=== PATIENT | female | born 1985 | race Caucasian/White ===

== ENCOUNTER → 2016-08-11 | Outpatient (CLI) | payer OTHER ==
[~2016-08-11] MED LIST: MTR600X PO; PRENTAB26 PO; SYN88
== END | disposition home or self-care (01) ==
LOC: C.LAB1850 10:20
PROVIDERS: ATTEND Specialist
DX: Z01.89 Encounter for other specified special examinations (principal)

== ENCOUNTER → 2017-02-14 | Outpatient (CLI) | payer BC ==
[2017-02-14 10:16] LABS: THYROID STIMULATING HORMONE 1.88 uIu/ml (0.300-4.500)
== END | disposition home or self-care (01) ==
LOC: C.LAB1850 08:13
PROVIDERS: ATTEND Internal Medicine Endocrinology, Diabetes & Metabolism
DX: E03.9 Hypothyroidism, unspecified (principal)

== ENCOUNTER 2019-05-24 20:18 | Inpatient (IN) ==
[2019-05-24 21:14] LABS: Basophils # (auto) 0.04 K/uL (0-0.2); Basophils % (auto) 0.5 %; Eosinophils # (auto) 0.16 K/uL (0-0.5); Eosinophils % (auto) 1.9 %; Hematocrit (blood only) 38.9 % (37-47); Hemoglobin 13.1 g/dL (12.0-16.0); Immature Granulocytes # (auto) 0.01 K/uL (0.00-0.02); Immature Granulocytes % (auto) 0.1 %; Lymphocytes % (auto) 27.8 %; Mean Corpuscular Hemoglobin 28.5 pg (25-34); Mean Corpuscular Hgb Conc 33.7 g/dL (32-36); Mean Corpuscular Volume 84.6 fL (80-100); Mean Platelet Volume 9.7 fL (7.4-10.4); Monocytes # (auto) 0.53 K/uL (0.11-0.59); Monocytes % (auto) 6.1 %; Neutrophils % (auto) 63.6 %; Platelet Count 193 K/uL (130-400); RDW Coefficient of Variation 13.9 % (11.5-14.5); RDW Standard Deviation 41.7 fL (36.4-46.3); White Blood Count 8.64 K/uL (4.8-10.8)
[2019-05-24 21:17] LABS: iSTAT Creatinine 0.6 mg/dl (0.6-1.3); iSTAT Hemoglobin 12.6 g/dl (12.0-16.0); iSTAT Ionized Calcium 1.16 mmol/l (1.12-1.32); iSTAT Potassium 4.5 mmol/L (3.3-5.0)
[2019-05-24 21:25] LABS: INR 1.1 (0.9-1.1); Partial Thromboplastin Ratio 1.1; Partial Thromboplastin Time 30.5 Seconds (21.0-31.0); Prothrombin Time 10.9 Seconds (9.0-12.0)
[2019-05-24] MEDS ORDERED: OPTIRAY 320 125ml IV PRN (21:25)
--- NOTE | 2019-05-24 21:36 | CT Scan Report ---
CT head/brain wo con CLINICAL HISTORY: 33 years-old Female with LEROY on lovenox. Acute headache TECHNIQUE: Multiple axial CT images of the head were obtained without contrast. A dose lowering tech nique was utilized adhering to the principles of ALARA. CT DOSE: 1353.10 mGy.cm COMPARISON: None. FINDINGS: No acute intracranial hemorrhage, midline shift, intracranial mass, hydrocephalus, territorial ischem ia or abnormal extra-axial collection. Minimal senescent calcifications of the lentiform nuclei. The calvarium is intact. The paranasal sinuses, mastoid air cells, and middle ear cavities are clear . IMPRESSION: No acute intracranial abnormality. ACT 112: Negative or not required by law. The above report was generated using voice recognition software. It may contain grammatical, syntax o r spelling errors. Electronically signed by: Danny Bryan M.D. 05/24/2019 9:35 PM
[2019-05-24 21:39] LABS: Albumin Globulin Ratio 0.8 (0.9-2); Albumin Level 3.2 gm/dl (3.4-5.0); BUN Creatinine Ratio 11.3 (10-20); Bilirubin,Total 0.3 mg/dl (0.2-1); Est GFR (African American) 120.5; Total Protein 7.2 gm/dl (6.4-8.2)
[2019-05-24] MEDS ORDERED: SODIUM CHLORIDE 0.9% 1000ML 1,000 ML IV ONE (21:48)
--- NOTE | 2019-05-24 21:56 | CT Scan Report ---
CT angio chest PE protocol HISTORY: 33 years-old Female with SOB with DVT eval for PE. Acute shortness of breath with DVT TECHNIQUE: Multiple CTA images of the chest were obtained after the intravenous administration of 117 ml Optiray 320. Coronal and sagittal MIPS were obtained from the axial data set and were submitted for review. All measurements were obtained according to NASCET criteria. A dose lowering technique w as utilized adhering to the principles of ALARA. COMPARISON: Chest radiograph 02/23/2018 FINDINGS: CTA: Heart is normal in size. There is no pericardial effusion. Thoracic aorta is unremarkable without ane urysm or dissection. Patency of the imaged great vessels. Extensive bilateral pulmonary emboli involv e the main right and left pulmonary arteries extending into the lobar, segmental and subsegmental bra nches bilaterally. Extensive emboli are noted with present within the right lower lobe. No evidence o f right heart strain. No saddle embolus. CT CHEST: Unremarkable thyroid. Residual thymic tissue anterior mediastinum. No adenopathy by CT size criteria. No pneumothorax, pleural effusion, overt pulmonary edema or airspace consolidation to suggest pulmon ioana infarct. There are 2 subpleural solid pulmonary nodules of the right lung apex measuring up to 4 mm are likely benign. No suspicious pulmonary nodules or masses identified. The central airways appea r patent. Cholecystectomy. Mild wall thickening of the distal esophagus with tiny hiatal hernia. Soft tissues a nd breast parenchyma appear unremarkable. Bones appear intact. IMPRESSION: 1. Extensive bilateral pulmonary emboli involve the right and left main pulmonary arteries extending into the lobar, segmental and subsegmental branches bilaterally. No evidence of right heart strain, p leural effusion or pulmonary infarct. 2. Cholecystectomy. 3. Mild wall thickening of the distal esophagus with tiny hiatal hernia. ACT 112: Negative or not required by law. The above report was generated using voice recognition software. It may contain grammatical, syntax o r spelling errors. Electronically signed by: Danny Bryan M.D. 05/24/2019 9:55 PM
[2019-05-24] MEDS ORDERED: ONDANSETRON INJ 2 MG/ML 2 ML VIAL IV PRN (22:54)
[2019-05-24] MEDS ORDERED: HYDROmorphone INJ 0.5 MG/0.5 ML SYR IV PRN (22:54)
[2019-05-24] MEDS ORDERED: HydrALAZINE HCL 20 MG/ML VIAL IV PRN (23:06)
[2019-05-24] MEDS: ACETAMINOPHEN 325 MG TAB PO PRN (23:08)
[2019-05-24] MEDS: FAMOTIDINE 20 MG TAB PO SCH (23:08)
--- NOTE | 2019-05-24 23:14 | History & Physical Report ---
Date of Service May 24, 2019 Assessment & Plan (1) Multiple pulmonary emboli: Admit PCU Lovenox 1mg/kg Q12 hours Oxygenation is preserved POX 98% on RA. Echo Pain control ordered. (2) Acute deep vein thrombosis (DVT) of left lower extremity: Diagnosed today at [facility] Started on Lovenox just today. MESERET hose for swelling prevention. (3) Chronic headaches: Pain control ordered. (4) Hypothyroidism: Continue Synthroid. History of Present Illness 33 y/o female presented to the ED with headache and exertional SOB. She reports that she had developed high estrogen levels as a result of IVF cycle. 6 days prior she had noticed pain in the posterior left knee, but had resolved by morning. She noted a severe headache over the weekend. Then on the morning of 05/24, she felt L lower leg pain again and went to ED in [place], [place]. She was noted to have a DVT and given dose of Lovenox in the ED. Throughout the day she noticed exertional SOB and developed a headache. She came to the ED now is found to have b/l PE. She did take her Lovenox dose at 1999. Primary Care Provider: Arnoldo Lara Allergies Allergy/AdvReac Type Severity Reaction Status Date / Time cortisone AdvReac Severe HAD PERIOD Verified 05/24/19 21:06 FOR 3 MONTHS Home Medications Home Medications Medication Instructions Recorded Confirmed Type PNV cmb#95-ferrous fumarate-FA 1 tab PO DAILY 02/23/18 05/24/19 History [] Synthroid 137 mcg tablet 137 mcg PO DAILY #30 tab NS 05/24/19 05/24/19 Rx enoxaparin [Lovenox] 100 mg SUBCUT Q12H 05/24/19 05/24/19 History Past Med/Surg History Medical History Ankylosing spondylitis Anxiety Fibromyalgia H/O varicella History of ectopic Hypothyroid (Chronic) IBS (irritable bowel syndrome) Need for rhogam due to Rh negative mother Palpitations resulting from assisted reproductive technology in third trimester Surgical History H/O foot surgery History of hip surgery History of salpingectomy ectopic , Right tube, December, S/P cholecystectomy S/P dilation and curettage S/P tonsillectomy and adenoidectomy Family History Aunt Ovarian cancer maternal Cervix cancer Other Cardiac disorder Diabetes Prostate cancer Stroke Thyroid disease Social History Preferred Language: Monegasque Communication Ability: Effective Beliefs That Will Affect Care: None Current Living Situation: Spouse Feels Safe at Home: Yes Safety Concerns: Feels Safe At This Time Smoking Status: Never smoker Hx Alcohol Use: No Hx Substance Use: No Review of Systems Review of Systems: Constitutional- no fever; no weight loss Eyes- no acute visual changes ENT- no sinus drainage; no pharyngitis Pulmonary- no cough, no wheezing. Cardiac- no chest pain, no palpitations, no orthopnea, no dependent edema GI- no nausea, no vomiting, no diarrhea, no melena, no hematochezia - no dysuria, no hematuria Musculoskeletal - As in HPI Derm- no rashes, no new skin lesions. Hematologic- no unusual bruising, no unusual bleeding Lymphatics- no adenopathy Endocrine- no polyuria or polydipsia; no heat or cold intolerance Neuro- no headaches, no focal neurologic symptoms Psych- no anxiety, no depression Physical Exam Physical Exam: General- adult female, NAD Head- atraumatic Eyes- PERRL, EOMI, anicteric ENT- oropharynx clear Neck- supple, no JVD, no adenopathy, no thyromegaly. Lungs- CTA b/l No R/R/W. Heart- regular rhythm; no murmur, no gallop, no rub appreciated Abdomen- normal bowel sounds, soft, nontender. 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 Skin- warm & dry Results & Data Vital Signs (Past 12 Hours) Vital Signs Temp Pulse Resp BP Pulse Ox 05/24/19 22:30 105 H 24 159/97 H 98 05/24/19 22:02 100 H 24 142/69 H 98 05/24/19 21:52 97 05/24/19 21:48 86 22 134/81 99 05/24/19 20:20 37.0 C 104 H 18 148/94 H 96 Laboratory Results Laboratory Results WBC 8.64 K/uL (4.8-10.8) 05/24/19 20:50 RBC 4.60 M/uL (4.2-5.4) 05/24/19 20:50 Hgb 13.1 g/dL (12.0-16.0) 05/24/19 20:50 POC Hgb 12.6 g/dl (12.0-16.0) 05/24/19 21:04 Hct 38.9 % (37-47) 05/24/19 20:50 POC Hct 37 % (37-47) 05/24/19 21:04 MCV 84.6 fL (80-100) 05/24/19 20:50 MCH 28.5 pg (25-34) 05/24/19 20:50 MCHC 33.7 g/dL (32-36) 05/24/19 20:50 RDW Std Deviation 41.7 fL (36.4-46.3) 05/24/19 20:50 RDW Coeff of Florentino 13.9 % (11.5-14.5) 05/24/19 20:50 Plt Count 193 K/uL (130-400) 05/24/19 20:50 MPV 9.7 fL (7.4-10.4) 05/24/19 20:50 Immature Gran % (Auto) 0.1 % 05/24/19 20:50 Neut % (Auto) 63.6 % 05/24/19 20:50 Lymph % (Auto) 27.8 % 05/24/19 20:50 Hudson % (Auto) 6.1 % 05/24/19 20:50 Eos % (Auto) 1.9 % 05/24/19 20:50 Baso % (Auto) 0.5 % 05/24/19 20:50 Immature Gran # (Auto) 0.01 K/uL (0.00-0.02) 05/24/19 20:50 Neut # (Auto) 5.50 K/uL (1.4-6.5) 05/24/19 20:50 Lymph # (Auto) 2.40 K/uL (1.2-3.4) 05/24/19 20:50 Hudson # (Auto) 0.53 K/uL (0.11-0.59) 05/24/19 20:50 Eos # (Auto) 0.16 K/uL (0-0.5) 05/24/19 20:50 Baso # (Auto) 0.04 K/uL (0-0.2) 05/24/19 20:50 PT 10.9 Seconds (9.0-12.0) 05/24/19 20:50 INR 1.1 (0.9-1.1) 05/24/19 20:50 APTT 30.5 Seconds (21.0-31.0) 05/24/19 20:50 PTT Ratio 1.1 05/24/19 20:50 POC Sodium 139 mmol/L (135-144) 05/24/19 21:04 Sodium 139 mmol/L (136-145) 05/24/19 20:50 POC Potassium 4.5 mmol/L (3.3-5.0) 05/24/19 21:04 Potassium mmol/L (3.5-5.1) 05/24/19 20:50 POC Chloride 106 mmol/L (101-112) 05/24/19 21:04 Chloride 109 mmol/L (98-107) H 05/24/19 20:50 Carbon Dioxide 26 mmol/L (21-32) 05/24/19 20:50 POC Total CO2 26 mEq/l (24-31) 05/24/19 21:04 Anion Gap 5.0 (3-11) 05/24/19 20:50 POC Anion Gap 14.0 mmol/L (16-25) L 05/24/19 21:04 POC BUN 9 mg/dl (7-18) 05/24/19 21:04 BUN 9 mg/dl (7-18) 05/24/19 20:50 Creatinine 0.75 mg/dl (0.6-1.2) 05/24/19 20:50 POC Creatinine 0.6 mg/dl (0.6-1.3) 05/24/19 21:04 Est Cr Clr Drug Dosing 130.0 ml/min 05/24/19 20:50 Est GFR ( Amer) 120.5 05/24/19 20:50 Est GFR (Non-Af Amer) 104.0 05/24/19 20:50 BUN/Creatinine Ratio 11.3 (10-20) 05/24/19 20:50 Glucose 106 mg/dl (70-99) H 05/24/19 20:50 POC Glucose (other) 111 mg/dl (70-99) H 05/24/19 21:04 Calcium 9.0 mg/dl (8.5-10.1) 05/24/19 20:50 POC Ioniz Calcium Nicolás 1.16 mmol/l (1.12-1.32) 05/24/19 21:04 Total Bilirubin 0.3 mg/dl (0.2-1) 05/24/19 20:50 AST U/L (15-37) 05/24/19 20:50 ALT 20 U/L (12-78) 05/24/19 20:50 Alkaline Phosphatase 59 U/L (45-117) 05/24/19 20:50 Total Protein 7.2 gm/dl (6.4-8.2) 05/24/19 20:50 Albumin 3.2 gm/dl (3.4-5.0) L 05/24/19 20:50 Globulin 4.0 gm/dl (2.5-4.0) 05/24/19 20:50 Albumin/Globulin Ratio 0.8 (0.9-2) L 05/24/19 20:50 HCG, Quant < 1 mIU/ml 05/24/19 20:50 Diagnostic Findings [place], [place] [phone] CT Scan Report Patient: LÓPEZ AUSTIN LAdmit Date: 05/24/19 MR#: [id number]: [address] [place] [address] Acct ID:[id number]: Date: 1985[facility] Zip: [place] [address] Age: 33Location: ED Sex: F Room/Bed: Att Phy:Diagnosis: DVT,HEADACHE,SHORTNESS OF BREATH Gavi Phy: Arnoldo Lara MDService Date: 05/24/19 Fam Phy:Interpreting Phy: Rich Bryan Admit Phy: Ordering Phy: Tobias Holt MD cc: ~ CT angio chest PE protocol HISTORY: 33 years-old Female with SOB with DVT eval for PE. Acute shortness of breath with DVT TECHNIQUE: Multiple CTA images of the chest were obtained after the intravenous administration of 117 ml Optiray 320. Coronal and sagittal MIPS were obtained from the axial data set and were submitted for review. All measurements were obtained according to NASCET criteria. A dose lowering technique was utilized adhering to the principles of ALARA. COMPARISON: Chest radiograph 02/23/2018 FINDINGS: CTA: Heart is normal in size. There is no pericardial effusion. Thoracic aorta is unremarkable without aneurysm or dissection. Patency of the imaged great vessels. Extensive bilateral pulmonary emboli involve the main right and left pulmonary arteries extending into the lobar, segmental and subsegmental branches bilaterally. Extensive emboli are noted with present within the right lower lobe. No evidence of right heart strain. No saddle embolus. CT CHEST: Unremarkable thyroid. Residual thymic tissue anterior mediastinum. No adenopathy by CT size criteria. No pneumothorax, pleural effusion, overt pulmonary edema or airspace consolidation to suggest pulmonary infarct. There are 2 subpleural solid pulmonary nodules of the right lung apex measuring up to 4 mm are likely benign. No suspicious pulmonary nodules or masses identified. The central airways appear patent. Cholecystectomy. Mild wall thickening of the distal esophagus with tiny hiatal hernia. Soft tissues and breast parenchyma appear unremarkable. Bones appear intact. IMPRESSION: 1. Extensive bilateral pulmonary emboli involve the right and left main pulmonary arteries extending into the lobar, segmental and subsegmental branches bilaterally. No evidence of right heart strain, pleural effusion or pulmonary infarct. 2. Cholecystectomy. 3. Mild wall thickening of the distal esophagus with tiny hiatal hernia. ACT 112: Negative or not required by law. The above report was generated using voice recognition software. It may contain grammatical, syntax or spelling errors. Electronically signed by: Danyn Bryan M.D. 05/24/2019 9:55 PM Dictated: 05/24/192149 Transcribed: 05/24/192149 [facility], [place] [phone] CT Scan Report Patient: LÓPEZ AUSTIN Date: 05/24/19 MR#: [id number]: [address] [address] [facility] [place] Acct ID:[id number]: Date: 1985[facility] Zip: [place] [address] Age: 33Location: ED Sex: F Room/Bed: Att Phy:Diagnosis: DVT,HEADACHE,SHORTNESS OF BREATH Gavi Phy: Arnoldo Lara, MDService Date: 05/24/19 Fam Phy:Interpreting Phy: Rich Bryan Admit Phy: Ordering Phy: Tobias Holt MD cc: ~ CT head/brain wo con CLINICAL HISTORY: 33 years-old Female with LEROY on lovenox. Acute headache TECHNIQUE: Multiple axial CT images of the head were obtained without contrast. A dose lowering technique was utilized adhering to the principles of ALARA. CT DOSE: 1353.10 mGy.cm COMPARISON: None. FINDINGS: No acute intracranial hemorrhage, midline shift, intracranial mass, hydrocephalus, territorial ischemia or abnormal extra-axial collection. Minimal senescent calcifications of the lentiform nuclei. The calvarium is intact. The paranasal sinuses, mastoid air cells, and middle ear cavities are clear. IMPRESSION: No acute intracranial abnormality. ACT 112: Negative or not required by law. The above report was generated using voice recognition software. It may contain grammatical, syntax or spelling errors. Electronically signed by: Danny Bryan M.D. 05/24/2019 9:35 PM Dictated: 05/24/192132 Transcribed: 05/24/192132 Code Status & VTE Plan VTE Prophylaxis Plan VTE Prophylaxis will be ordered: Yes PG Care Time/CCT Total # of Minutes Spent Total Time Spent: 55 Total Time Spent with Patient: Total time spent is greater than 50% in coordination of care (as documented) at patient's floor/unit and/or counseling patient: (1) Acute deep vein thrombosis (DVT) of left lower extremity Affected thrombotic vein of extremity: popliteal Qualified Code(s): I82.432 - Acute embolism and thrombosis of left popliteal vein
--- NOTE | 2019-05-25 01:22 | Emergency Department Note ---
Entered by Herlinda Chavarria acting as a scribe for Tobias Holt MD History of Present Illness General Chief complaint: Shortness of Breath/Dyspnea Stated complaint: DVT,HEADACHE,SHORTNESS OF BREATH Time Seen by Provider: 05/24/19 20:27 Source: patient Limitations: no limitations History of Present Illness Onset (ago): hour(s) (today) Location: chest Pain Consistency: + intermittent Maximum Pain Intensity: 8 Quality: + other (SOB) Exacerbated By: + other (exertion) Associated symptoms: + headaches; no chest pain, no fever/chills and no nausea/vomiting The patient is a 33 year old female who presents to the Emergency Room with complaints of intermittent SOB that began today. The patient reports that the SOB worsens with exertion. She reports that she went to the ER in [place], [place], and she was diagnosed with a DVT in her left lower extremity. The patient reports that she was prescribed 100 mg Lovenox twice daily. She notes that she is not , as she had a negative urine test, but she is undergoing IVF. The patient complains of a severe headache that began after leaving the hospital today, noting that this headache is different from her past migraines. She reports that her migraines are usually on the left side of her head, but today she is having right sided-head pain. She states that the quality of pain is the same as her migraines. The past reports that she had a more severe headache that began 4 days ago and ended after 3 days. That headache was not the worst headache of her life and she has had similar intensity headaches as well. She does state the headache is improving. She complains of intermittent left lower extremity paresthesias. The patient denies any nausea/vomiting, chest pain, back pain, fever, and weakness. Home Medications Home Medications Medication Instructions Recorded Confirmed Type PNV cmb#95-ferrous fumarate-FA 1 tab PO DAILY 02/23/18 05/24/19 History [] Synthroid 137 mcg tablet 137 mcg PO DAILY #30 tab NS 05/24/19 05/24/19 Rx enoxaparin [Lovenox] 100 mg SUBCUT Q12H 05/24/19 05/24/19 History Allergies Allergy/AdvReac Type Severity Reaction Status Date / Time cortisone AdvReac Severe HAD PERIOD Verified 05/24/19 21:06 FOR 3 MONTHS Past Med/Surg History Medical History Ankylosing spondylitis Anxiety Fibromyalgia H/O varicella History of ectopic Hypothyroid (Chronic) IBS (irritable bowel syndrome) Need for rhogam due to Rh negative mother Palpitations resulting from assisted reproductive technology in third trimester Surgical History H/O foot surgery History of hip surgery History of salpingectomy ectopic , Right tube, December, S/P cholecystectomy S/P dilation and curettage S/P tonsillectomy and adenoidectomy Family History Aunt Ovarian cancer maternal Cervix cancer Other Cardiac disorder Diabetes Prostate cancer Stroke Thyroid disease Social History Preferred Language: [place] Communication Ability: Effective Beliefs That Will Affect Care: None Current Living Situation: Spouse Feels Safe at Home: Yes Safety Concerns: Feels Safe At This Time Smoking Status: Never smoker Hx Alcohol Use: No Hx Substance Use: No Review of Systems See HPI for pertinent positives & negatives. and A total of 10 systems reviewed and were otherwise negative Physical Exam Vital Signs Vital Signs - 24 hr 05/24/19 20:20 05/24/19 21:48 05/24/19 21:52 Temperature 37.0 C Temperature Source Oral Pulse Rate 104 H 86 Pulse Rate from SpO2 Sensor 86 Pulse Rhythm Regular Pulse Strength Normal Respiratory Rate 18 22 Respiratory Effort / Characteristics Non-Labored Spontaneous Respiratory Depth Normal Respiratory Pattern Regular Blood Pressure 148/94 H 134/81 Blood Pressure Mean 112 93 Blood Pressure Position Sitting Pulse Oximetry 96 99 97 Oxygen Delivery Method Room Air Room Air Sepsis Recent Fever Within 48 Hours No Sepsis Action Taken by Nursing No Action Required 05/24/19 22:02 05/24/19 22:30 Temperature Temperature Source Pulse Rate 100 H 105 H Pulse Rate from SpO2 Sensor 102 H 104 H Pulse Rhythm Pulse Strength Respiratory Rate 24 24 Respiratory Effort / Characteristics Respiratory Depth Respiratory Pattern Blood Pressure 142/69 H 159/97 H Blood Pressure Mean 81 112 Blood Pressure Position Pulse Oximetry 98 98 Oxygen Delivery Method Sepsis Recent Fever Within 48 Hours Sepsis Action Taken by Nursing Constitutional: Vital signs reviewed. Eyes: Pupils are equal round reactive to light. Conjunctiva are noninjected. ENT: Pharynx is clear without erythema or exudate. Mucous membranes are moist. Neck supple without meningeal signs. Respiratory: Clear to auscultation bilaterally. Breath sounds are equal bilaterally. Cardiovascular: Regular rate and rhythm. No rubs or gallops. GI: Soft, nondistended and nontender. Bowel sounds are present. Musculoskeletal: No peripheral edema. No lower extremity tenderness. Integumentary: No cyanosis. or jaundice. Neurologic: The patient is awake and alert. Cranial nerves II-XII are intact. Motor is 5 out of 5 all extremities. Sensation is intact to light touch all extremities. Normal speech. No pronator drift. Psychiatric: Normal affect. Not anxious appearing. Course Course 2030: The patient was evaluated in room C10. A complete history and physical exam was performed. Per the patient's results from the ER in [place], [place], the patient had a platelet count of 202, a hemoglobin of 13, and a creatinine of 0.6 this morning. 2226: I reassessed the patient, and she stated that her headache is improving. I discussed her CT results with her. 2235: I spoke with Dr. Mccann, [facility] hospitalist, about the patient's case. He will further evaluate the patient. Administered Medications Acetaminophen (Tylenol) 650 mg PO Q4H PRN PRN Reason: mild pain or fever Stop: 06/23/19 22:53 Last Admin: 05/24/19 23:08 Dose: 650 mg Documented by: [id number] Famotidine (Pepcid) 20 mg PO BID JERRY Stop: 06/23/19 22:59 Last Admin: 05/24/19 23:08 Dose: 20 mg Documented by: [id number] Discontinued Medications Sodium Chloride (Nss 1000ml) 1,000 mls @ 999 mls/hr IV .Q1H1M ONE Stop: 05/24/19 22:48 Last Infusion: 05/24/19 22:48 Dose: 0 mls/hr Documented by: [id number] Admin: 05/24/19 21:55 Dose: 999 mls/hr Documented by: [id number] Ioversol (Optiray 320 125ml) 117 ml IV ONCE PRN PRN Reason: Interaction Checking Stop: 05/28/19 21:24 Last Admin: 05/24/19 21:26 Dose: 117 ml Documented by: [id number] Critical Care Time Critical Care Time: Yes Total Critical Care Time: 35 I have personally spent 35 minutes of critical care time in the direct management of this patient. This includes bedside care, interpretation of diagnostic studies, and testing, discussion with consultants, patient, and family members, and other required patient management activities. This 35 minutes is in excess of all separately billable procedures. Medical Decision Making Differential Diagnosis The differential diagnosis includes: migraine headache, ICH, intracranial mass, PE, and anemia. Medical Records Attestation: I reviewed the patient's medical records. I did perform a limited focused review of portions of the patient's old chart on the electronic medical record. The patient has had no recent pertinent visits to this hospital. Home Medications Current Medication List: was personally reviewed by me Additional Comments: I did perform a limited focused review of portions of the patient's old chart on the electronic medical record. The patient has had no r ecent pertinent visits to this hospital. Laboratory Data Attestation: I reviewed the patient's lab results. Result diagrams: 05/24/19 20:50 05/24/19 20:50 Lab Results 05/24/19 05/24/19 05/24/19 Range/Units 20:50 20:50 20:50 WBC (4.8-10.8) K/uL RBC (4.2-5.4) M/uL Hgb (12.0-16.0) g/dL POC Hgb (12.0-16.0) g/dl Hct (37-47) % POC Hct (37-47) % MCV (80-100) fL MCH (25-34) pg MCHC (32-36) g/dL RDW Std Deviation (36.4-46.3) fL RDW Coeff of Florentino (11.5-14.5) % Plt Count (130-400) K/uL MPV (7.4-10.4) fL Immature Gran % (Auto) % Neut % (Auto) % Lymph % (Auto) % [place] % (Auto) % Eos % (Auto) % Baso % (Auto) % Immature Gran # (Auto) (0.00-0.02) K/uL Neut # (Auto) (1.4-6.5) K/uL Lymph # (Auto) (1.2-3.4) K/uL [place] # (Auto) (0.11-0.59) K/uL Eos # (Auto) (0-0.5) K/uL Baso # (Auto) (0-0.2) K/uL PT 10.9 (9.0-12.0) Seconds INR 1.1 (0.9-1.1) APTT 30.5 (21.0-31.0) Seconds PTT Ratio 1.1 POC Sodium (135-144) mmol/L Sodium 139 (136-145) mmol/L POC Potassium (3.3-5.0) mmol/L Potassium (3.5-5.1) mmol/L POC Chloride (101-112) mmol/L Chloride 109 H (98-107) mmol/L Carbon Dioxide 26 (21-32) mmol/L POC Total CO2 (24-31) mEq/l Anion Gap 5.0 (3-11) POC Anion Gap (16-25) mmol/L POC BUN (7-18) mg/dl BUN 9 (7-18) mg/dl Creatinine 0.75 (0.6-1.2) mg/dl POC Creatinine (0.6-1.3) mg/dl Est Cr Clr Drug Dosing 130.0 ml/min Est GFR ( Amer) 120.5 Est GFR (Non-Af Amer) 104.0 BUN/Creatinine Ratio 11.3 (10-20) Glucose 106 H (70-99) mg/dl POC Glucose (other) (70-99) mg/dl Calcium 9.0 (8.5-10.1) mg/dl POC Ioniz Calcium Nicolás (1.12-1.32) mmol/l Total Bilirubin 0.3 (0.2-1) mg/dl AST (15-37) U/L ALT 20 (12-78) U/L Alkaline Phosphatase 59 (45-117) U/L Total Protein 7.2 (6.4-8.2) gm/dl Albumin 3.2 L (3.4-5.0) gm/dl Globulin 4.0 (2.5-4.0) gm/dl Albumin/Globulin Ratio 0.8 L (0.9-2) HCG, Quant < 1 mIU/ml 05/24/19 05/24/19 Range/Units 20:50 21:04 WBC 8.64 (4.8-10.8) K/uL RBC 4.60 (4.2-5.4) M/uL Hgb 13.1 (12.0-16.0) g/dL POC Hgb 12.6 (12.0-16.0) g/dl Hct 38.9 (37-47) % POC Hct 37 (37-47) % MCV 84.6 (80-100) fL MCH 28.5 (25-34) pg MCHC 33.7 (32-36) g/dL RDW Std Deviation 41.7 (36.4-46.3) fL RDW Coeff of Florentino 13.9 (11.5-14.5) % Plt Count 193 (130-400) K/uL MPV 9.7 (7.4-10.4) fL Immature Gran % (Auto) 0.1 % Neut % (Auto) 63.6 % Lymph % (Auto) 27.8 % [place] % (Auto) 6.1 % Eos % (Auto) 1.9 % Baso % (Auto) 0.5 % Immature Gran # (Auto) 0.01 (0.00-0.02) K/uL Neut # (Auto) 5.50 (1.4-6.5) K/uL Lymph # (Auto) 2.40 (1.2-3.4) K/uL [place] # (Auto) 0.53 (0.11-0.59) K/uL Eos # (Auto) 0.16 (0-0.5) K/uL Baso # (Auto) 0.04 (0-0.2) K/uL PT (9.0-12.0) Seconds INR (0.9-1.1) APTT (21.0-31.0) Seconds PTT Ratio POC Sodium 139 (135-144) mmol/L Sodium (136-145) mmol/L POC Potassium 4.5 (3.3-5.0) mmol/L Potassium (3.5-5.1) mmol/L POC Chloride 106 (101-112) mmol/L Chloride (98-107) mmol/L Carbon Dioxide (21-32) mmol/L POC Total CO2 26 (24-31) mEq/l Anion Gap (3-11) POC Anion Gap 14.0 L (16-25) mmol/L POC BUN 9 (7-18) mg/dl BUN (7-18) mg/dl Creatinine (0.6-1.2) mg/dl POC Creatinine 0.6 (0.6-1.3) mg/dl Est Cr Clr Drug Dosing ml/min Est GFR ( Amer) Est GFR (Non-Af Amer) BUN/Creatinine Ratio (10-20) Glucose (70-99) mg/dl POC Glucose (other) 111 H (70-99) mg/dl Calcium (8.5-10.1) mg/dl POC Ioniz Calcium Nicolás 1.16 (1.12-1.32) mmol/l Total Bilirubin (0.2-1) mg/dl AST (15-37) U/L ALT (12-78) U/L Alkaline Phosphatase (45-117) U/L Total Protein (6.4-8.2) gm/dl Albumin (3.4-5.0) gm/dl Globulin (2.5-4.0) gm/dl Albumin/Globulin Ratio (0.9-2) HCG, Quant mIU/ml Imaging Data Radiologist's Impression: Radiology results as stated below per my review and the radiologist's interpretation: CT angio chest PE protocol HISTORY: 33 years-old Female with SOB with DVT eval for PE. Acute shortness of breath with DVT TECHNIQUE: Multiple CTA images of the chest were obtained after the intravenous administration of 117 ml Optiray 320. Coronal and sagittal MIPS were obtained from the axial data set and were submitted for review. All measurements were obtained according to NASCET criteria. A dose lowering technique was utilized adhering to the principles of ALARA. COMPARISON: Chest radiograph 02/23/2018 FINDINGS: CTA: Heart is normal in size. There is no pericardial effusion. Thoracic aorta is unremarkable without aneurysm or dissection. Patency of the imaged great vessels. Extensive bilateral pulmonary emboli involve the main right and left pulmonary arteries extending into the lobar, segmental and subsegmental branches bilaterally. Extensive emboli are noted with present within the right lower lobe. No evidence of right heart strain. No saddle embolus. CT CHEST: Unremarkable thyroid. Residual thymic tissue anterior mediastinum. No adenopathy by CT size criteria. No pneumothorax, pleural effusion, overt pulmonary edema or airspace consolidation to suggest pulmonary infarct. There are 2 subpleural solid pulmonary nodules of the right lung apex measuring up to 4 mm are likely benign. No suspicious pulmonary nodules or masses identified. The central airways appear patent. Cholecystectomy. Mild wall thickening of the distal esophagus with tiny hiatal hernia. Soft tissues and breast parenchyma appear unremarkable. Bones appear intact. IMPRESSION: 1. Extensive bilateral pulmonary emboli involve the right and left main pulmonary arteries extending into the lobar, segmental and subsegmental branches bilaterally. No evidence of right heart strain, pleural effusion or pulmonary infarct. 2. Cholecystectomy. 3. Mild wall thickening of the distal esophagus with tiny hiatal hernia. ACT 112: Negative or not required by law. The above report was generated using voice recognition software. It may contain grammatical, syntax or spelling errors. Electronically signed by: Danny Bryan M.D. 05/24/2019 9:[address] head/brain wo con CLINICAL HISTORY: 33 years-old Female with LEROY on lovenox. Acute headache TECHNIQUE: Multiple axial CT images of the head were obtained without contrast. A dose lowering technique was utilized adhering to the principles of ALARA. CT DOSE: 1353.10 mGy.cm COMPARISON: None. FINDINGS: No acute intracranial hemorrhage, midline shift, intracranial mass, hydrocephalus, territorial ischemia or abnormal extra-axial collection. Minimal senescent calcifications of the lentiform nuclei. The calvarium is intact. The paranasal sinuses, mastoid air cells, and middle ear cavities are clear. IMPRESSION: No acute intracranial abnormality. ACT 112: Negative or not required by law. The above report was generated using voice recognition software. It may contain grammatical, syntax or spelling errors. Electronically signed by: Danny Bryan M.D. 05/24/2019 9:35 PM ECG Data Attestation: I personally reviewed and interpreted this ECG as follows: Indication: + SOB/dyspnea Rate (beats per minute): 95 Rhythm: + normal sinus ECG Intervals/blocks: + Incomplete right bundle branch block ECG Findings: + Other (normal QRS); no PVCs Blood Pressure Blood Pressure Findings: Elevated blood pressure Blood Pressure Disposition: Referred to patients primary care provider [facility] Narrative I did evaluate the patient as noted above. Patient was recently diagnosed with a left popliteal DVT this morning. She was placed on Lovenox and has had 2 doses so far. Her last dose was 8 PM. She is now presenting with a severe head ache on the right side of her head as well as dyspnea on exertion. She denies any chest or back pain. IV access was established. I did start her on normal saline IV. She states her headache is improving and she is neurologically intact. The patient was placed on a continuous broomcorn sorter. I did order and personally review the patient's 12-lead EKG as described above. Her twelve-lead EKG does not demonstrate any acute ischemia. Her heart rate is slightly elevated at 95. I did order and review the patient's blood work as noted in the electronic medical record. Troponin is negative. CBC is unremarkable without leukocytosis or anemia. I did order a CT of the head and CT angiogram of the chest. I did review the images myself as well as the radiology report as described above. There is no evidence of acute intracranial abnormality. CT angiogram unfortunately demonstrates multiple pulmonary emboli involving the right and left main pulmonary arteries extending into the lobar, segmental and subsegmental branches. There is no evidence of pulmonary infarct. I did discuss the test results with the patient. She is now more tachycardic with a heart rate in the 110s. She does state that her headache is improving. Given the extent of her clot burden I did recommend hospitalization for monitoring. I did not start her on IV heparin as she just received Lovenox at 8 PM. I did discuss the case with the hospitalist and case packer and sealer. Impression & Plan Multiple pulmonary emboli, Headache, Acute deep vein thrombosis (DVT) of left lower extremity Discharge Plan Visit Data *Final* Discharge Date/Time: 05/24/19 23:22 Chief Complaint: Shortness of Breath/Dyspnea Stated Complaint: DVT,HEADACHE,SHORTNESS OF BREATH ED Provider: Tobias Holt Discharge Problem: Multiple pulmonary emboli, Headache, Acute deep vein thrombosis (DVT) of left lower extremity Patient Disposition: Admitted As Inpatient Discharge Instructions Interventions: ED Discharge Assessment Last Done: 05/24/19 23:22 Discharge Problem: Headache Qualifiers: Headache type: unspecified Headache chronicity pattern: acute headache Intractability: not intractable Qualified Code(s): R51 - Headache Acute deep vein thrombosis (DVT) of left lower extremity Qualifiers: Affected thrombotic vein of extremity: popliteal Qualified Code(s): I82.432 - Acute embolism and thrombosis of left popliteal vein The scribe's documentation has been prepared under my direction and personally reviewed by me in its entirety. I confirm that the note above accurately reflects all work, treatment, procedures, and medical decision making performed by me.
[2019-05-25] MEDS: ACETAMINOPHEN 325 MG TAB PO PRN ×3 (05:23→19:56)
[2019-05-25 05:58] LABS: Hematocrit (blood only) 36.4 % (37-47); Hemoglobin 12.4 g/dL (12.0-16.0); Mean Corpuscular Hemoglobin 28.7 pg (25-34); Mean Corpuscular Hgb Conc 34.1 g/dL (32-36); Mean Corpuscular Volume 84.3 fL (80-100); Mean Platelet Volume 9.7 fL (7.4-10.4); Platelet Count 188 K/uL (130-400); RDW Coefficient of Variation 13.8 % (11.5-14.5); RDW Standard Deviation 41.6 fL (36.4-46.3); Red Blood Count 4.32 M/uL (4.2-5.4); White Blood Count 10.38 K/uL (4.8-10.8)
[2019-05-25 06:16] LABS: BUN Creatinine Ratio 11.6 (10-20); Calcium 8.7 mg/dl (8.5-10.1); Creatinine Clr Calc Pharmacy 143.2 ml/min; Est GFR (African American) 132.3; Est GFR (Non-African American) 114.1
[2019-05-25] MEDS: LEVOTHYROXINE SODIUM 137 MCG TABLET PO SCH (06:20)
[2019-05-25] MEDS ORDERED: PERFLUTREN LIPID MICROSPHERE (DEFINITY) IV ONE (07:06)
[2019-05-25] MEDS ORDERED: ENOXAPARIN 100 MG/1ML SYR SQ SCH (08:00)
[2019-05-25] MEDS: FERROUS FUMARATE/ASCORBIC ACID 65 MG CAPCR PO SCH (08:18)
[2019-05-25] MEDS: TRAMADOL HCL 50 MG TABLET PO PRN ×2 (08:28→19:56)
[2019-05-25] MEDS: FAMOTIDINE 20 MG TAB PO SCH ×2 (09:26→19:55)
--- NOTE | 2019-05-25 11:34 | Electrocardiogram Report ---
Test Reason : Blood Pressure : / mmHG Vent. Rate : 095 BPM Atrial Rate : 095 BPM P-R Int : 158 ms QRS Dur : 114 ms QT Int : 374 ms P-R-T Axes : 040 -22 000 degrees QTc Int : 469 ms Normal sinus rhythm Incomplete right bundle branch block Borderline ECG When compared with ECG of 23-FEB-2018 20:42, Premature atrial complexes are no longer Present Incomplete right bundle branch block has replaced Non-specific intra-ventricular conduction delay Confirmed by Beto Hunt ([id number]) on 05/25/2019 11:33:32 AM Referred By: REFERRED SELF Confirmed By:Beto Hunt
[2019-05-25] MEDS: APIXABAN 5 MG TABLET PO SCH (19:55)
[2019-05-25] MEDS ORDERED: APIXABAN 2.5 MG TAB PO SCH (21:00)
--- NOTE | 2019-05-25 22:18 | Hospitalist Progress Note ---
Date of Service May 25, 2019 Assessment & Plan (1) Multiple pulmonary emboli: Admit PCU Echo did not show right sided strain. LV function is mildly decreased but normal. Will switch to Eliquis as patient will not be getting at this time and it is easier to administer. Patient will be given coupon. Patient reports she recio snot feel comfortable being discarged at this time given her SOB. She ambulated the halls and did not have hypoxia. will defer hypercoagulable workup to PCP. (2) Acute deep vein thrombosis (DVT) of left lower extremity: Diagnose at [facility] for swelling prevention. (3) Chronic headaches: Pain control ordered. (4) Hypothyroidism: Continue Synthroid. Subjective Patient reports being SOB on exertion. Patient denies diaphoresis, nausea, vomiting, Review of Systems Review of Systems: All systems reviewed & are unremarkable except as noted in HPI & below Physical Exam Physical Exam: General- adult female, NAD Head- atraumatic Eyes- PERRL, EOMI, anicteric ENT- oropharynx clear Neck- supple, no JVD, no adenopathy, no thyromegaly. Lungs- CTA b/l No R/R/W. Heart- regular rhythm; no murmur, no gallop, no rub appreciated Abdomen- normal bowel sounds, soft, nontender. Extremities- no pretibial edema, peripheral pulses intact Neuro- alert, oriented x 3; PERRL, EOMI; pressure control supervisor II-XII grossly intact, non-focal. Skin- warm & dry Results & Data Vital Signs (Past 12 Hours) Vital Signs Temp Pulse Resp BP Pulse Ox 05/25/19 18:59 37.3 C 86 20 130/78 95 05/25/19 15:06 36.8 C 81 19 123/82 97 05/25/19 10:49 36.7 C 76 18 137/80 96 PG Care Time/CCT Total # of Minutes Spent Total Time Spent with Patient: Total time spent is greater than 50% in coordination of care (as documented) at patient's floor/unit and/or counseling patient: (1) Acute deep vein thrombosis (DVT) of left lower extremity Affected thrombotic vein of extremity: popliteal Qualified Code(s): I82.432 - Acute embolism and thrombosis of left popliteal vein
[2019-05-26] MEDS: TRAMADOL HCL 50 MG TABLET PO PRN ×2 (01:14→05:28)
[2019-05-26] MEDS: ACETAMINOPHEN 325 MG TAB PO PRN ×2 (01:14→05:28)
[2019-05-26] MEDS: LEVOTHYROXINE SODIUM 137 MCG TABLET PO SCH (05:28)
[2019-05-26 05:53] LABS: Hematocrit (blood only) 37.8 % (37-47); Hemoglobin 12.6 g/dL (12.0-16.0); Mean Corpuscular Hemoglobin 28.4 pg (25-34); Mean Corpuscular Hgb Conc 33.3 g/dL (32-36); Mean Corpuscular Volume 85.1 fL (80-100); Mean Platelet Volume 9.5 fL (7.4-10.4); Platelet Count 207 K/uL (130-400); RDW Coefficient of Variation 13.9 % (11.5-14.5); RDW Standard Deviation 42.4 fL (36.4-46.3); Red Blood Count 4.44 M/uL (4.2-5.4); White Blood Count 7.89 K/uL (4.8-10.8)
[2019-05-26 06:24] LABS: BUN Creatinine Ratio 14.4 (10-20); Calcium 8.5 mg/dl (8.5-10.1); Est GFR (African American) 128.8; Est GFR (Non-African American) 111.1; Potassium 3.6 mmol/L (3.5-5.1)
[2019-05-26] MEDS: APIXABAN 5 MG TABLET PO SCH (08:12)
[2019-05-26] MEDS: FERROUS FUMARATE/ASCORBIC ACID 65 MG CAPCR PO SCH (08:12)
[2019-05-26] MEDS: FAMOTIDINE 20 MG TAB PO SCH (08:12)
--- NOTE | 2019-05-28 13:27 | Discharge Summary ---
Date of Service May 28, 2019 Admission HPI Per Admitting Provider 33 y/o female presented to the ED with headache and exertional SOB. She reports that she had developed high estrogen levels as a result of IVF cycle. 6 days prior she had noticed pain in the posterior left knee, but had resolved by morning. She noted a severe headache over the weekend. Then on the morning of 05/24, she felt L lower leg pain again and went to ED in [place], [place]. She was noted to have a DVT and given dose of Lovenox in the ED. Throughout the day she noticed exertional SOB and developed a headache. She came to the ED now is found to have b/l PE. She did take her Lovenox dose at 1999. Primary Care Provider: Arnoldo Lara Principal Diagnosis pulmonary emboli Discharge Exam General- adult female, NAD Head- atraumatic Eyes- PERRL, EOMI, anicteric ENT- oropharynx clear Neck- supple, no JVD, no adenopathy, no thyromegaly. Lungs- CTA b/l No R/R/W. Heart- regular rhythm; no murmur, no gallop, no rub appreciated Abdomen- normal bowel sounds, soft, nontender. Extremities- no pretibial edema, peripheral pulses intact Neuro- alert, oriented x 3; PERRL, EOMI; dermatology nurse practitioner II-XII grossly intact, non-focal. Skin- warm & dry Discharge Data Allergies Allergy/AdvReac Type Severity Reaction Status Date / Time cortisone AdvReac Severe HAD PERIOD Verified 05/24/19 21:06 FOR 3 MONTHS Consultations 05/24/19 22:37 ED Decision to Admit Stat Ordered Studies 05/24/19 20:45 CT angio chest PE protocol Stat CT head/brain wo con Stat Hospital Course (1) Multiple pulmonary emboli: Admitted PCU Echo did not show right sided strain. LV function is mildly decreased but normal. Will switch to Eliquis as patient will not be getting at this time and it is easier to administer. Patient will be given coupon. She ambulated the halls and did not have hypoxia. will defer hypercoagulable workup to PCP. Patient did have partial workup for IVF treatment. Will need to complete this. Patient will need to be seen as an outpatient by hematology prior to returning to IVF CLINIC. It appears her estrogen level was high which likely caused an hypercoagulable state in her. (2) Acute deep vein thrombosis (DVT) of left lower extremity: Diagnose at [facility] hernandez for swelling prevention. (3) Chronic headaches: Pain control ordered. (4) Hypothyroidism: Continue Synthroid. Total Time Total Time Spent Total Time Spent (In Minutes): 32 Total Time Includes: Examination of the Patient, Discharge Planning and Medication Reconciliation Discharge Plan Discharge Items Patient Disposition: Home - Self-Care Reason For Visit: B/L PE Discharge Diagnosis: Bilateral pulmonary emboli Activity: Resume your previous activity Non-emergency contact: Primary Care Provider Call non-emergency contact if: you have any medication questions Follow-up/Referrals: Arnoldo Lara [Primary Care Provider] - 05/29/19 11:10 am (Please, follow up with Dr. Lara on TuesdayMay 29 at 11:10 am. *If you need to change this appointment, call the office at [phone].) Diet: Regular Addtl Attending Provider Instructions: You have been hospitalized for an acute medical problem: pulmonary emboli. During your stay at [facility], we have made an effort to correct the problem that brought you to the hospital while keeping you as comfortable as possible. Medications were used to bring your condition under control and your discharge instructions will include directions for any medications you should take after leaving the hospital. Please make sure you see your Primary Care Provider as part of your follow up plan. Will schedule followup with upholstery tech. recommend echocardiogram in 3 months. Pending Studies at Discharge: No Stand-Alone Forms: My [facility], Smoking Cessation Medications and DC Order Prescriptions: New Eliquis 5 mg Tablet See Rx Instructions .ROUTE .COMPLEX Qty: 72 RF: 0 Continued levothyroxine [Synthroid] 137 mcg tablet 137 mcg PO DAILY Qty: 30 RF: 2 PNV [id number] fumarate-FA [] 28 mg iron- 800 mcg Tablet 1 tab PO DAILY RF: 0 Discontinued enoxaparin [Lovenox] 100 mg/mL Syringe 100 mg SUBCUT Q12H RF: 0 Discharge Orders: Discharge Order (Routine); Ordered 05/26/19 Ordered By: Joaquin Morrell Admission Data Admit Date/Time: 05/24/19 22:54 Attending Provider: Joaquin Morrell Admit Provider: Crescencio Mccann Primary Care Provider: Arnoldo Lara Other Providers: Crescencio Mccann Other Interventions: Discharge Summary Assessment (RN) Last Done: 05/26/19 10:12 DC Date/Time DO NOT enter until pt leaves facility: 05/26/19 12:47
--- NOTE | 2019-05-29 11:09 | Coding Query ---
CODING QUERY To promote full compliance with coding requirements relating to patient care, provider participation is requested in all cases of certified professional coder uncertainty. Please assist us with the question(s) below: Coding Question(s): There is documentation of Pulmonary Embolism and DVT in a patient undergoing IVF treatment with documentation on the Discharge [place] of, "It appears her estrogen level was high which likely caused an hypercoagulable state in her.". Please specify below, in your clinical opinion. (x ) Pulmonary Embolism and DVT with hypercoagulable state are likely a Complication from the IVF treatment ( ) Pulmonary Embolism and DVT with hypercoagulable state are NOT likely a Complication from the IVF treatment ( ) Other: Please specify Physician's Response(s): Thank you Renee Yanes Principal Diagnosis: "that condition established after study, to be chiefly responsible for occasioning the admission of the patient to the hospital for care." Co-Existing Principal Diagnosis: "when two or more diagnoses equally meet the criteria for principal diagnosis as determined by the circumstances of admission, diagnostic work up, and/or therapy provided, and the Alphabetic Index, Tabular List, or another coding guideline does not provide sequencing direction, any one of the diagnoses may be sequenced first." "When the physician has documented what appears to be a current diagnosis in the body of the record, but has not included the diagnosis in the final diagnostic statement, the physician should be asked whether the diagnosis should be added." (Source Coding [facility] 2 QTR90. p3-4) VERONICA
== END 2019-05-26 12:47 | disposition home or self-care (01) | DRG 919 ==
LOC: ED 20:18 → 2S 22:54 → SUATTDRO 22:54 → 2S 23:22